=== PATIENT | female | born 1950 | race Caucasian/White ===

== ENCOUNTER 2018-11-21 10:46 | Outpatient (CLI) | payer MEDICARE, MEDICAID | END 2018-11-21 10:47 | disposition home or self-care (01) | LOC: RAD 10:46 ==

== ENCOUNTER 2018-12-08 14:25 | Outpatient (CLI) | payer MEDICARE, MEDICAID | END 2018-12-08 14:26 | disposition home or self-care (01) | LOC: RAD 14:25 ==